=== PATIENT | male | born 1990 | race Caucasian/White ===

== ENCOUNTER 2025-10-31 02:00 | Emergency (ER) | payer OTHER ==
[~2025-10-31] VITALS: Ht 180.3 cm; Wt 92.1 kg
[2025-10-31 04:18] LABS: PLATELET COUNT (AUTO) 207 K/uL (150-450); RED BLOOD CELL COUNT(AUTO) 4.84 MIL/uL (4.5-6.0); RED CELL DISTRIBUTION WIDTH 13.2 % (11.5-15.0); WHITE BLOOD COUNT (AUTO) 7.5 K/uL (4.3-11.0)
[2025-10-31 04:27] LABS: CALCIUM, SERUM 8.6 mg/dL (8.5-10.1); CREATININE 0.8 mg/dL (0.6-1.3); SODIUM SERUM 143.0 mmol/L (136-145); UREA NITROGEN, BLOOD 13.0 mg/dL (7-18)
[2025-10-31 04:31] LABS: ASPARTATE AMINOTRANSFERASE 15.0 U/L (15-37); TOTAL PROTEIN, SERUM 7.1 g/dL (6.4-8.2)
[2025-10-31] MEDS ORDERED: SERT50TA PO (04:39)
[2025-10-31] MEDS ORDERED: TRAZ-182 PO (04:39)
[2025-10-31 04:49] VITALS: BP 120/96; TEMP 98.4; O2SAT 97
[2025-10-31 15:38] LABS: HIV-1/2 ANTIBODY NON REACTIVE (NONREACTIVE)
[2025-11-01 05:08] LABS: RAPID PLASMA REAGIN QUAL. Non Reactive (Non Reactive)
[2025-11-02 05:07] LABS: CHLAMYDIA TRACHOMATIS NAA Negative (Negative); NEISSERIA GONORRHOEAE NAA Negative (Negative)
== END 2025-10-31 04:49 | disposition home or self-care (01) ==
LOC: ER 02:15
DX: R10.32 Left lower quadrant pain (principal); G47.00 Insomnia, unspecified
CPT/HCPCS: 36415; 80053-TC; 83690-TC; 85025-TC; 86592; 86593; 87491; 87591; 87806